=== PATIENT | male | born 1955 | race Caucasian/White ===

== ENCOUNTER 2025-03-16 07:59 | Day surgery (SDC) | payer OTHER, SELFPAY ==
[2025-02-19 09:10] LABS: Hematocrit 48.4 % (39.0-52.0); Hemoglobin 15.0 g/dL (13.0-18.0); Mean Corp Hgb Conc. 31.0 g/dL (33.0-37.0); Mean Corpuscular Volume 76.8 fL (80.0-94.0); Nucleated Red Blood Cells % 0 % (-); Platelet Count 343 10^3/uL (130-400); Red Cell Dist. Width 19.0 % (11.5-14.5)
[2025-02-19 09:12] VITALS: BMI 41.1
[2025-02-19 09:19] LABS: INR 1.20; PT 15.0 Sec (11.4-14.6)
[2025-02-19 09:25] LABS: ALT (SGPT) 36 U/L (0-50); AST (SGOT) 25 U/L (17-59); Albumin 4.3 g/dl (3.5-5.0); Alkaline Phosphatase 63 U/L (38-126); Blood Urea Nitrogen 13 mg/dl (9-20); Calcium 9.6 mg/dl (8.4-10.2); Carbon Dioxide 32 mmol/L (22-30); Chloride 103 mmol/L (98-107); Estimated Creatinine Clearance 103 ml/min; Glucose 107 mg/dl (70-99); Magnesium 2.0 mg/dl (1.6-2.3); Potassium 5.2 mmol/L (3.5-5.1); Sodium 139 mmol/L (135-145); Total Protein 7.6 g/dl (6.3-8.2); eGFR > 60.00
[2025-03-16] VITALS (31 sets, daily range): BP systolic 75–187; BP diastolic 65–121; BMI 41.7
[2025-03-16 12:27] LABS: ACT-LR - POC 302 Seconds (116-155)
[2025-03-16 12:47] LABS: ACT-LR - POC 277 Seconds (116-155)
--- NOTE | 2025-03-16 12:51 | ITS.CL.ABL ---
Jewel Hole Finish Opener - Ablation
Ablation
Procedure Report:
ELECTROPHYSIOLOGY ABLATION STUDY
DATE:: March 16, 2025�����������������������������REFERRING: Dr. Yusuf King
INDICATION: Persistent supraventricular tachycardia in the form of atrial fibrillation.� Noted to have mild mitral stenosis as well
HISTORY: See H and P.��As above
ANTIARRHYTHMIC DRUG: Diltiazem and metoprolol
PRE-PROCEDURE DAMIAN: No intracardiac thrombus on intracardiac ultrasound
PRESENTING RHYTHM: Atrial fibrillation
'TIME-OUT':��called and confirmed.
SEDATION/ANESTHESIA:��provided via the anesthesia department using general anesthesia (LMA).
INTRAVENOUS/ARTERIAL ACCESS:
Right femoral venous -8Fr
Left femoral venous - 8 Fr, 6 Fr
Jrewjp-pb-xhftd suture bilateral
Ultrasound guidance for bilateral femoral vein access was utilized by me to obtain access with demonstration of normal anatomy
CHADS-VASC Score:
HAS-Bled Score
PROCEDURE:
1.��A decapolar CS catheter was placed within the CS for mapping and pacing.��This was also used as the reference catheter for the 3-D map.
2. The intracardiac ultrasound catheter was positioned in the RA to identify the FO for targeting of transseptal puncture, assist��in identification of the pulmonary vein ostia, monitoring pre and post ablation pulmonary vein flow velocities,
monitoring for 'bubble' formation during RF application as a sign of thermal injury,��and to monitor for pericardial effusion during mapping and ablation procedure.���Left atrial size, LV ejection fraction, and pulmonary vein flows were monitored
pre and post ablation procedure. The other valves were inspected and found to be free of significant regurgitation or stenosis.
3.��Half of the calculated heparin bolus was administered prior to the first transeptal puncture.��Transseptal puncture was performed to diagnose RA and LA pressure so that safety of LA mapping and ablation could be further assessed, and to access
the left atrium and pulmonary veins for mapping and ablation.��This entailed advancing an 16.8 Bulgarian sheath, RF wire with dilator into the superior vena cava and withdrawing both (monitoring intracardiac ultrasound, fluoroscopy and tip pressure)
with the tip oriented toward the atrial septum.��The fossa ovalis was engaged (indicated by sudden displacement of the sheath tip as well as tenting of the fossa seen on intracardiac ultrasound).��Left atrial access required a pass with the
Brockenbrough needle extended.��Left atrial catheter position was confirmed by pressure monitoring (RA mean pressure 4 mm Hg and LA mean pressure 10 mm Hg), LA saturation (99%),��as well as fluoroscopy.��The sheath was advanced over the dilator and
positioned in the left atrium.��This procedure was repeated for the Agilis sheath.��The remainder of the calculated heparin bolus was administered and heparin was
infused to maintain ACT at 300 -350 seconds throughout the case.
4.��RA pacing was performed via the proximal decapolar poles and LA pacing was performed via the distal decapolar poles.
5. A quadrapolar catheter was first positioned at the His position for His Bundle recording which was tagged via the 3-D Navex sytem, and then passed to the RVA for RV pacing and recording.
6. The ablation catheter was positioned through one of the transeptal seaths and a 20 pole ring mapping catheter was positioned through the second seath into the LA and then the ostia of the LIPV, LSPV, RSPV and the RIPV.��
7.��Next, a 3-D map was created using Navex.���A 3-D reconstructed CT image was compared to the 3-D Navex map to assist in anatomic interpretation, mapping and ablation.��The CT image and the NavX image were fused.
8. A total of 67 lesions were given. Initially 53 lesions were given with entrance block in all 4 pulmonary veins and the posterior wall although there was repeated and continued signal at the posterior wall outside the left superior pulm vein and
the roof additional lesions were given to the roof and posterior wall in all of basket and flower poses rendering the posterior wall isolated. The pulmonary veins were initially ablated with olive and basket poses rendering entrance block. Atrial
fibrillation persisted so we performed roof posterior wall and floor line in the left atrium. Atrial fibrillation persisted so we converted to sinus rhythm. Remapping did not demonstrate any early return of atrial fibrillation although as above
there was persistent signal in the posterior wall and roof outside the left pulmonary vein and additional 14 lesions were given in all of basket and flower poses rendering the posterior wall from the roof to the floor with entrance and exit block.
Patient was noninducible at EP study post procedure. Cardioversion required pads to be moved to an AP and PA position as he failed in standard AP and lateral pad positions at 300 J and 360 J. Moving the pads to AP and PA position defibrillated the
patient to sinus rhythm with a 300 J synchronized shock.
9. Normal sinus node and AV node function noted.
TOTAL FLOURO TIME: 16.1 minutes
TOTAL RF DURATION: 0 minutes
REVERSAL OF HEPARIN: 35 mg of protamine, slow IV administration
COMPLICATIONS:
None
Intracardiac US shows no pericardial effusion post ablation.
SUMMARY:��
Complex left atrial mapping and ablation.
Isolation of all 4 pulmonary veins as well as the roof posterior wall and floor of the left atrium as above.
RECOMMENDATIONS:
1. Ambulate 4 hours
2. Resume anticoagulation
3.� Continue meds as directed
4.��Outpatient follow-up with Dr. King in 2 to 3 months
Copy to: Dr. Yusuf King at [facility]
--- NOTE | 2025-03-16 17:06 | W.PN.UPDATE ---
Update Note
Progress Note Update
Sftjlo-cn-zdfti sutures were removed at 450 with oozing from the superficial right femoral venous site. The site was injected with lidocaine with epinephrine 1% approximately 10 cc with adequate hemostasis and an 0 silk pivpwt-ve-sufgv stitch was
placed with adequate hemostasis. The patient will be monitored overnight to make sure he is not oozing at the venipuncture site which appears to be a superficial ooze. We utilized [employer] supervisory lifeguard to let him know that he will be going home
tomorrow morning. He has a soft mild hematoma in the left groin. BMI is 41.7 as noted. As such I elected to keep him overnight for monitoring and he understands and agrees.
--- NOTE | 2025-03-16 18:23 | PTCARENOTE ---
Patient admitted to IVU. AO x3, Moroccan speaking. NSR HR 86, BP 126/73, 94% on 2 liters NC. Left femoral site bruised, soft with dry dressing. Right femoral dressing dry with 1 suture underneath dressing. +1 right DP, +2 left DP. Dinner ordered. Arias
to void, urinal provided, call johnson in reach
[2025-03-16] MEDS: LIPITOR 10 MG PO (20:06)
[2025-03-16] MEDS: TOPROL XL 50 MG PO (20:06)
[2025-03-16] MEDS: ELIQUIS 5 MG PO (20:07)
[2025-03-16] MEDS: CARDIZEM CD 240 MG PO (21:29)
[2025-03-16] MEDS: NON-FORMULARY ITEM 200 MCG INH (22:27)
[2025-03-17 03:59] VITALS: BP 122/72
[2025-03-17 04:42] LABS: Hematocrit 39.1 % (39.0-52.0); Hemoglobin 12.5 g/dL (13.0-18.0); Mean Corp Hgb Conc. 32.0 g/dL (33.0-37.0); Mean Corpuscular Volume 77.4 fL (80.0-94.0); Platelet Count 298 10^3/uL (130-400); Red Cell Dist. Width 17.1 % (11.5-14.5)
[2025-03-17 05:07] LABS: Blood Urea Nitrogen 20 mg/dl (9-20); Calcium 8.7 mg/dl (8.4-10.2); Carbon Dioxide 27 mmol/L (22-30); Chloride 106 mmol/L (98-107); Estimated Creatinine Clearance 117 ml/min; Glucose 128 mg/dl (70-99); Potassium 4.9 mmol/L (3.5-5.1); Sodium 136 mmol/L (135-145); eGFR > 60.00
[2025-03-17] MEDS: ELIQUIS 5 MG PO (08:00)
[2025-03-17 08:01] VITALS: BP 126/83
[2025-03-17] MEDS: NON-FORMULARY ITEM 200 MCG INH (08:27)
--- NOTE | 2025-03-17 09:27 | W.PN.CARDCBS ---
Addendum entered and electronically signed by Leonardo Peters MD 03/17/25 11:49:
patient seen and examined.
no further oozing from right groin. No pain. Left groin with mild infra inguinal hematoma and ecchymosis to mid thigh. not painful. SR overnight.
exam:
as per FILLER AND TRIMMER note. I examined both left and right groin access sites this am
PCP: Robson Felipe MD
CDY: Yusuf King MD
Impression:
Persistent atrial fibrillation
post PVI/PW ablation 03/16/25
Labile hypertension.
Hyperlipidemia.
Mild mitral stenosis, Mild tricuspid regurgitation.
Severe COPD.
Suspected obstructive sleep apnea, sleep study recommended.
Iron deficiency anemia.
Prediabetes.
Morbid obesity, BMI 41.1.
Remote history of tobacco abuse.
Plan:
Hbg 12.5 from 15 noted
tele SR
continue OAC Eliquis
continue diltiazem 240mg daily and metoprolol succinate 50mg daily
Activity restrictions reviewed
f/u Dr. King in 1 mo
home today
Original Note:
Translation Services
-
Preferred Language: New Zealander
Personnel Security Assistant service via: Phone
Today's Communication / Plan
-
post ablation with groin complications
stable for d/c home today
Impression / Plan
-
PCP: Robson Felipe MD
CDY: Yusuf King MD
Impression:
Persistent atrial fibrillation
post PVI/PW ablation 03/16/25
Labile hypertension.
Hyperlipidemia.
Mild mitral stenosis, Mild tricuspid regurgitation.
Severe COPD.
Suspected obstructive sleep apnea, sleep study recommended.
Iron deficiency anemia.
Prediabetes.
Morbid obesity, BMI 41.1.
Remote history of tobacco abuse.
Plan:
post ablation had HT in L groin and oozing in R groin and was observed o/n
L groin with significant ecchymosis but soft, NT
R groin suture removed, no bleeding, soft
Hbg 12.5 from 15
tele SR
continue OAC Eliquis
continue diltiazem 240mg daily and metoprolol succinate 50mg daily
Activity restrictions reviewed
f/u Dr. King in 1 mo
home today
Progress Note - [employer]
Subjective
Date of Service: March 17, 2025
denies cp, sob
Objective
Labs:
03/17/25 04:06
03/17/25 04:06
Labs
Hgb 12.5 g/dL (13.0-18.0) L 03/17/25 04:06
Hct 39.1 % (39.0-52.0) 03/17/25 04:06
Plt Count 298 10^3/uL (130-400) 03/17/25 04:06
PT 15.0 Sec (11.4-14.6) H 02/19/25 08:54
INR 1.20 02/19/25 08:54
Sodium 136 mmol/L (135-145) 03/17/25 04:06
Potassium 4.9 mmol/L (3.5-5.1) 03/17/25 04:06
BUN 20 mg/dl (9-20) 03/17/25 04:06
Creatinine 0.8 mg/dL (0.7-1.3) 03/17/25 04:06
Glucose 128 mg/dl (70-99) H 03/17/25 04:06
Vital Signs and I&O:
Vital Signs
Temp Pulse Resp BP Pulse Ox
98.8 F 76 16 130/87 93
03/17/25 08:04 03/17/25 08:36 03/17/25 08:36 03/16/25 21:29 03/17/25 08:36
Vital Signs
Temp Pulse Resp BP Pulse Ox
98.8 F 76 16 130/87 93
03/17/25 08:04 03/17/25 08:36 03/17/25 08:36 03/16/25 21:29 03/17/25 08:36
Intake & Output
03/15/25 03/16/25 03/17/25 03/18/25
06:59 06:59 06:59 06:59
Intake Total 1440 / 1440
Balance 1440 / 1440
Physical Exam
Physical Exam
NAD< AOX3
S1,S2, RRR
CTAB, non labored, no wheeze
SNTND bsx4
L groin with moderate ecchymosis, soft, no active bleeding, dressing changed
R groin suture removed, no active bleeding, soft, no HT
--- NOTE | 2025-03-17 09:30 | PTCARENOTE ---
Patient left groin remains bruised, soft, dressing changed. Right groin figure 8 suture removed. Patient walked in halls, no bleeding from sites.
--- NOTE | 2025-03-17 09:52 | PTCARENOTE ---
Patient discharge instructions completed using research center director services ID # [id number]. Patient verbalized understanding and has is follow up appointments already in place and verbalized understanding. His friend will be picking him and driving him home
today
--- NOTE | 2025-03-17 10:24 | CM ---
Chart reviewed. Patient is mostly Setswana speaking, independent of ADLS, lives with his in a apartment, [address], 0 DME. Plan is for the patient to return home.
--- NOTE | 2025-03-17 13:21 | W.DS.TRANS ---
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
-
Discharge Instructions:
Sleep Apnea Risk High
Discharge Diagnosis/Procedures AFib Ablation
Diet No restrictions
Activity No strenuous activity
Additional Activity 5 days
Driving Restrictions No driving for 24 hours
Bathing Restrictions OK to Shower
Instructions: Radiofrequency Ablation
Atrial fibrillation (DC)
Heart-healthy diet
Stand-Alone Forms: DC Instructions- Cath/EP Lab
Changes to Home Medications: No
Discharge Medications:
DC Medications w/original date entered in [employer] [facility]
albuterol sulfate 90 mcg/actuation aerosol inhaler 1 inh inhalation Q4HPRN PRN shortness of breath 02/17/25
apixaban 5 mg tablet (Eliquis) 5 mg PO BID 02/17/25
atorvastatin 10 mg tablet 10 mg PO QPM 02/17/25
diltiazem HCl 240 mg tablet,extended release 24 hr 240 mg PO QPM 02/17/25
metoprolol succinate 50 mg tablet,extended release 24 hr 50 mg PO QPM 02/17/25
umeclidinium 62.5 mcg-vilanterol 25 mcg/actuation powdr for inhalation (Anoro Ellipta) 1 inh inhalation DAILY 02/17/25
valsartan 160 mg tablet 160 mg PO QPM 02/17/25
Pulmicort Turbuhaler 200 BID 03/16/25
budesonide 1 mg/2 mL suspension for nebulization (Pulmicort) 1 mg inhalation BID 03/16/25
ergocalciferol (vitamin D2) 1,250 mcg (50,000 unit) capsule (Vitamin D2) 1,250 mcg PO QWEEK 03/16/25
Home Medication Changes
Pending Results: No
== END 2025-03-17 10:35 | disposition home or self-care (01) ==
LOC: CATH 07:59
PROVIDERS: ATTENDING PHYSICIAN Internal Medicine Cardiovascular Disease; FAMILY PHYSICIAN Internal Medicine; OTHER PHYSICIAN Internal Medicine Cardiovascular Disease
DX: I48.19 Other persistent atrial fibrillation (principal); D50.9 Iron deficiency anemia, unspecified; E27.8 Other specified disorders of adrenal gland; E66.01 Morbid (severe) obesity due to excess calories; E78.5 Hyperlipidemia, unspecified; I07.1 Rheumatic tricuspid insufficiency; I10 Essential (primary) hypertension; I47.10 Supraventricular tachycardia, unspecified; J44.9 Chronic obstructive pulmonary disease, unspecified; K44.9 Diaphragmatic hernia without obstruction or gangrene; R73.03 Prediabetes; S30.12XA Contusion of groin, initial encounter; Z68.41 Body mass index [BMI] 40.0-44.9, adult; Z87.891 Personal history of nicotine dependence; Z79.01 Long term (current) use of anticoagulants; Z79.899 Other long term (current) drug therapy; Z79.51 Long term (current) use of inhaled steroids; Z90.49 Acquired absence of other specified parts of digestive tract; E87.5 Hyperkalemia
CPT/HCPCS: C1732; C1894; C1730; C1769; C1892; C1759; 36415; 75572; 80048; 80053; 83735; 85025; 85027; 85347; 85610; 86850; 86900; 86901; 93005; 93656; 93657; 94640; C1733; C1766; Q9967